=== PATIENT | female | born 1975 | race Caucasian/White ===

== ENCOUNTER → 2019-07-21 18:05 | Outpatient (CLI) | payer OTHER, SELFPAY ==
--- NOTE | 2019-07-21 18:14 | DI.MG.S_ITS ---
BILATERAL DIGITAL SCREENING MAMMOGRAM 3D/2D WITH CAD: 07/21/2019 CLINICAL: Routine screening. Comparison is made to exams dated: 05/15/2018 mammogram, 05/16/2018 mammogram - [facility], and 01/07/2017 mammogram - [place]. The tissue of both breasts is heterogeneously dense. This may lower the sensitivity of mammography. Current study was also evaluated with a Computer Aided Detection (CAD) system. No significant masses, calcifications, or other findings are seen in either breast. There has been no significant interval change. IMPRESSION: NEGATIVE There is no mammographic evidence of malignancy. A 1 year screening mammogram is recommended. This exam was interpreted at Station ID: [id number]. NOTE: For mammograms, a report in lay terms will be sent to the patient. Approximately 15% of breast malignancies will not be visualized mammographically. In the management of a palpable breast mass, a negative mammogram must not discourage biopsy of a clinically suspicious lesion. Electronically Signed By: Radha bryant/cindy:07/22/2019 11:58:26 letter sent: Normal Exam ACR BI-RADS Category 1: Negative 3341F
== END ==
PROVIDERS: Visit Provider Registered Nurse Diabetes Educator
DX: Z12.31 Encounter for screening mammogram for malignant neoplasm of breast (principal)
CPT/HCPCS: 77063; 77067

== ENCOUNTER → 2020-11-04 08:06 | Outpatient (CLI) | payer OTHER, SELFPAY ==
--- NOTE | 2020-11-04 | DI.MG.S_ITS ---
BILATERAL DIGITAL SCREENING MAMMOGRAM 3D/2D WITH CAD: 11/04/2020 CLINICAL: Routine screening. Comparison is made to exams dated: 07/21/2019 mammogram - [facility], 05/16/2018 mammogram - [facility], 01/07/2017 mammogram - [place], and 05/15/2018 mammogram - [facility]. The tissue of both breasts is heterogeneously dense. This may lower the sensitivity of mammography. Current study was also evaluated with a Computer Aided Detection (CAD) system. There is a possible developing asymmetry in the left breast middle depth lateral region seen on the craniocaudal view only. There also is an asymmetry in the left breast middle depth central to the nipple seen on the craniocaudal view only. Additionally, there is possible architectural distortion in the left breast posterior depth superior region seen on the mediolateral oblique view only. No other significant masses, calcifications, or other findings are seen in either breast. IMPRESSION: INCOMPLETE: NEEDS ADDITIONAL IMAGING EVALUATION 1) The possible developing asymmetry in the left breast middle depth lateral region seen on the craniocaudal view only is indeterminate. -Additional views with possible ultrasound are recommended. 2) The asymmetry in the left breast middle depth central to the nipple seen on the craniocaudal view only is indeterminate. -Additional views with possible ultrasound are recommended. 3) The possible architectural distortion in the left breast posterior depth superior region seen on the mediolateral oblique view only is indeterminate. -Additional views with possible ultrasound are recommended. This exam was interpreted at Station ID: [id number]. NOTE: For mammograms, a report in lay terms will be sent to the patient. Approximately 15% of breast malignancies will not be visualized mammographically. In the management of a palpable breast mass, a negative mammogram must not discourage biopsy of a clinically suspicious lesion. Electronically Signed By: Dangelo Reed M.D. slc/:11/07/2020 08:04:11 letter sent: Additional Imaging Needed ACR BI-RADS Category 0: Incomplete 3340F
== END ==
PROVIDERS: Referring Provider Family Medicine; Visit Provider Family Medicine
DX: Z12.31 Encounter for screening mammogram for malignant neoplasm of breast (principal)
CPT/HCPCS: 77063; 77067

== ENCOUNTER → 2020-11-23 08:41 | Outpatient (CLI) | payer OTHER, SELFPAY ==
--- NOTE | 2020-11-23 | DI.MG.S_ITS ---
UNILATERAL LEFT DIGITAL DIAGNOSTIC MAMMOGRAM 3D/2D WITH ADDITIONAL VIEWS: 11/23/2020 CLINICAL: Additional evaluation requested from prior study. Comparison is made to exams dated: 11/04/2020 mammogram, 07/21/2019 mammogram - [facility], and 05/16/2018 mammogram - [facility]. The tissue of left breast is heterogeneously dense. This may lower the sensitivity of mammography. Redemonstration of previously described possible developing 1 cm oval asymmetry in the left breast middle depth lateral region seen on the craniocaudal view only. There also is a 0.7 cm oval asymmetry in the left breast middle depth central to the nipple seen on the craniocaudal view only. This is less prominent and decreased in size. The possible benign architectural distortion in the left breast posterior depth superior region seen on the mediolateral oblique view only is not reproduced and presumably represented superimposed breast tissue. No other significant masses or calcifications are seen in the breast. IMPRESSION: INCOMPLETE: NEEDS ADDITIONAL IMAGING EVALUATION The possible developing 1 cm oval asymmetry in the left breast middle depth lateral region seen on the craniocaudal view only resembles a cyst and is indeterminate. An ultrasound is recommended for further evaluation and is scheduled to immediately follow this examination. The 0.7 cm oval asymmetry in the left breast middle depth central to the nipple seen on the craniocaudal view only is indeterminate. An ultrasound is recommended for further evaluation and is scheduled to immediately follow this examination. The previously described possible architectural distortion in the posterior breast on the mediolateral oblique view disperses with additional views and is consistent with summation artifact. This exam was interpreted at Station ID: [id number]. NOTE: For mammograms, a report in lay terms will be sent to the patient. Approximately 15% of breast malignancies will not be visualized mammographically. In the management of a palpable breast mass, a negative mammogram must not discourage biopsy of a clinically suspicious lesion. Electronically Signed By: Chucho Avila M.D. aty/:11/23/2020 09:37:07 ACR BI-RADS Category 0: Incomplete 3340F
--- NOTE | 2020-11-23 | DI.US.S_ITS ---
ULTRASOUND OF LEFT BREAST: 11/23/2020 CLINICAL: Patient returns today to evaluate a focal asymmetry in the left breast. Comparison is made to exams dated: 11/23/2020 mammogram, 11/04/2020 mammogram, 07/21/2019 mammogram - [facility], 05/16/2018 mammogram, and 05/15/2018 mammogram - [facility]. Color flow and real-time ultrasound of the left breast were performed. Gee scale images of the real-time examination were reviewed. There is a 1.1 cm x 0.6 cm x 0.9 cm oval cyst with septated internal fagan in the left breast central to the nipple anterior depth 1 cm from the nipple. This oval cyst is hypoechoic with internal echoes. This correlates with mammography findings. Color flow imaging demonstrates that there is no vascularity present. There also is a benign 1.3 cm x 0.6 cm x 1 cm oval cyst in the left breast at 3 o'clock posterior depth 7 cm from the nipple. This oval cyst is anechoic with a well-defined boundary and posterior acoustic enhancement. This correlates with mammography findings. Color flow imaging demonstrates that there is no vascularity present. IMPRESSION: PROBABLY BENIGN The 1.1 cm x 0.6 cm x 0.9 cm oval cyst in the left breast central to the nipple anterior depth most likely is a complicated cyst and is probably benign. A follow-up left mammogram and an ultrasound in 6 months is recommended to demonstrate stability. The 1.3 cm x 0.6 cm x 1 cm oval simple cyst in the left breast at 3 o'clock posterior depth is benign. Findings and recommendations were conveyed to the patient during today's evaluation. This exam was interpreted at Station ID: [id number]. Electronically Signed By: Chucho Avila M.D. aty/:11/23/2020 16:04:55 letter sent: Followup Recommended Ultrasound BI-RADS: 3 Probably benign
== END ==
PROVIDERS: PCP Student in an Organized Health Care Education/Training Program; Referring Provider Student in an Organized Health Care Education/Training Program; Visit Provider Student in an Organized Health Care Education/Training Program
DX: R92.8 Other abnormal and inconclusive findings on diagnostic imaging of breast (principal); N60.02 Solitary cyst of left breast
CPT/HCPCS: 76642; 77065; G0279

== ENCOUNTER 2021-02-07 08:10 | Day surgery (SDC) | payer OTHER, SELFPAY ==
[2021-02-07 08:44] LABS: COVID19 -Nasal RAPID Negative (Negative)
[2021-02-07 09:06] VITALS: BP 117/81; PULSE 84; RESP 18; TEMP 36.6; O2SAT 99; BMI 23.3
--- NOTE | 2021-02-07 09:18 | PM.HP.1 ---
History of Present Illness History of Present Illness Date Patient Seen: 02/07/21 Time Patient Seen: 09:18 Chief complaint: DX COLONOSCOPY Narrative: I reviewed my note from January 09, 2021 rectal bleeding Patient History Family & Social History Social History: household members spouse Tobacco & Substance use: Smoking Status Never smoker alcohol intake never alcohol intake frequency holiday/special occasion Substance Use Type does not use Meds Home Medications and Allergies Home Medications Medication Instructions Recorded Confirmed Type No Known Home Medications 02/07/21 02/07/21 History Allergies Allergy/AdvReac Type Severity Reaction Status Date / Time cefaclor [From Ceclor] Allergy Intermediate Hives Verified 02/07/21 09:18 Review of Systems Review of Systems ROS: Yes All systems reviewed with the patient and are negative except as otherwise documented Exam Vital Signs (past 8 hours): - 02/07/21 09:06 Temperature 98 F Pulse Rate 84 Respiratory Rate 18 Blood Pressure 117/81 Pulse Oximetry 99 Oxygen Delivery Method Room Air Const General: cooperative and comfortable Orientation: alert HENMT Head: normocephalic Ears: external ears normal Nose: external nose normal Face and sinus: normal facial exam Mouth: oral mucosae normal Eyes General: appearance normal, both eyes and all related structures Neck Neck: normal visual inspection Chest Chest: normal inspection of the chest Resp Effort & Inspection: normal respiratory effort Auscultation: clear to auscultation bilaterally Cardio Rate: regular rate Rhythm: regular rhythm Heart Sounds: no murmurs GI Inspection: normal to inspection Palpation: soft and No tender Auscultation: normal bowel sounds Skin General: no rashes or lesions noted and No jaundice Neuro General: patient alert and moves all extremities Cognition: normal cognition Speech: speech normal Extrem General: no pedal edema Psych Appearance: grossly normal Objective Labs Labs: Laboratory Results - last 24 hr 02/07/21 07:55 SARS-CoV-2 (PCR) Negative Assessment & Plan Assessment & Plan narrative: Intermittent rectal bleeding. Colonoscopy is planned for today.
--- NOTE | 2021-02-07 09:19 | PM.PREOP ---
Pre-operative Note COVID-19 COVID-19 status: Negative Result date/Date tested (Pos, Neg/Pending): 02/07/21 Interval Note History & Physical reviewed/Exam performed by Physician: Yes Changes to H&P: No ASA Class (for procedural sedation): I
[2021-02-07] MEDS: SODIUM CHLORIDE 0.9% 1,000 ML 125 ML IV (09:22)
[2021-02-07] MEDS: LIDOCAINE JELLY 2% 5 ML 1 APPLIC TOP (10:08)
[2021-02-07] MEDS: MIDAZOLAM 5 MG/5 ML VIAL IV (10:15)
[2021-02-07] MEDS: fentaNYL 250 MCG/5 ML INJ IV (10:15)
--- NOTE | 2021-02-07 10:24 | P.OP.ENDO_ITS ---
Operative Date/Time/Diagnoses Date of procedure: 02/07/21 Time of procedure: 10:24 Pre-op diagnosis: Rectal bleeding Post-op diagnosis: same Procedure & Clinicians Study performed: Colonoscopy Same procedure as scheduled: Yes Indications: Rectal bleeding Surgeon: Luis Miranda Procedure Notes SCOAP/Timeout: Done Procedure in detail: After the risks and benefits were explained, written and verbal informed consent was obtained. The patient was brought into the procedure room and placed into the left lateral decubitus position. Conscious sedation medication was applied as per nursing documentation. Digital rectal ex amination was accomplished. The scope was introduced into the patient and advanced under direct visualization to the cecum as identified by the appendiceal orifice and ileocecal valve. The scope was slowly withdrawn to carefully examine the mucosa for any defects or lesions. Comprehensive imaging was accomplished throughout the rectum including the dentate line. The colon was decompressed, the scope was then removed from the patient who tolerated the procedure well. 4 mg Versed 100 mcg fentanyl bowel prep adequate pediatric colonoscope used Scope withdrawal time: 6 minutes Sedation minutes: 14 Specimen(s): none sent Complications: none Impression: There were some scattered diverticula in the left colon. No proctitis no colitis. No evidence of any polyps or mass lesions. The anorectum appeared visually normal with the exception of a probable fairly well healed fissure in the 10:00 a.m. location. The patient tolerated the rectal exam quite well (we used 2% lidocaine jelly) Endoscopic diagnosis 1. Well-healed anal fissure 2. Otherwise visually normal colonoscopy to cecum Post-procedure Recommendations: Colonscopy in 10 years Plan for aftercare: 1. Continue warm Epsom salt baths as needed. 2. He should there be any lingering ano-rectal pain, a 4 week course of 0.3% nifedipine ointment applied in a pea-sized lump inside the anal canal twice per day may be necessary. Disposition: PACU
[2021-02-07 10:26] VITALS: BP 116/65; PULSE 66; RESP 16; TEMP 36.7; O2SAT 97
[2021-02-07 10:31] VITALS: BP 112/65; PULSE 55; RESP 16; O2SAT 99
[2021-02-07 10:36] VITALS: BP 107/64; PULSE 53; RESP 14; O2SAT 99
[2021-02-07 10:41] VITALS: BP 109/61; PULSE 61; RESP 16; TEMP 36.7; O2SAT 98
[2021-02-07 10:55] VITALS: BP 124/80; PULSE 58; RESP 16; TEMP 36.8
== END 2021-02-07 11:00 | disposition home or self-care (01) ==
PROVIDERS: PCP Student in an Organized Health Care Education/Training Program; Referring Provider Internal Medicine Gastroenterology; Visit Provider Internal Medicine Gastroenterology
PROC: 0DJD8ZZ Inspection of Lower Intestinal Tract, Via Natural or Artificial Opening Endoscopic (ICD-10-PCS; CPT 45378; principal; 2021-02-07 09:30)
DX: K62.5 Hemorrhage of anus and rectum (principal); Z20.822 Contact with and (suspected) exposure to COVID-19
CPT/HCPCS: 45378; 87635; J2250; J3010

== ENCOUNTER → 2021-12-18 07:52 | Outpatient (CLI) | payer OTHER, SELFPAY | PROVIDERS: PCP Student in an Organized Health Care Education/Training Program; Referring Provider Family Medicine; Visit Provider Family Medicine | DX: Z53.20 Procedure and treatment not carried out because of patient's decision for unspecified reasons (principal) ==

== ENCOUNTER → 2022-03-12 12:02 | Outpatient (CLI) | payer OTHER, SELFPAY ==
--- NOTE | 2022-03-12 | DI.US.S_ITS ---
ULTRASOUND OF LEFT BREAST: 03/12/2022 CLINICAL: 12 month follow-up of cluster of cysts. No prior exams were available for comparison. Color flow and real-time ultrasound of the left breast were performed. Gee scale images of the real-time examination were reviewed. There is a 1.3 cm x 0.4 cm x 1 cm oval cyst with smooth internal fagan in the left breast central to the nipple anterior depth 1 cm from the nipple. This oval cyst is hypoechoic with internal echoes and no posterior acoustic shadowing or enhancement. This abnormality is increased in size and correlates with mammography findings. Color flow imaging demonstrates that there is no vascularity present. There also is a 1.7 cm x 0.9 cm x 1.2 cm wider than tall cyst in the left breast at 3 o'clock middle depth 7 cm from the nipple. This cyst is anechoic. This abnormality is not significantly changed and correlates with mammography findings. Color flow imaging demonstrates that there is no vascularity present. IMPRESSION: PROBABLY BENIGN The 1.3 cm x 0.4 cm x 1 cm oval cyst in the left breast central to the nipple anterior depth is consistent with a complicated cyst and is probably benign. A follow-up left ultrasound in 6 months is recommended to demonstrate stability. The 1.7 cm x 0.9 cm x 1.2 cm wider than tall cyst in the left breast at 3 o'clock middle depth is consistent with a simple cyst and is benign. Findings and recommendations were conveyed to the patient during today's evaluation. This exam was interpreted at Station ID: [id number]. Electronically Signed By: Chucho regan/:03/15/2022 06:54:39 letter sent: Followup Recommended Ultrasound BI-RADS: 3 Probably benign
--- NOTE | 2022-03-12 | DI.MG.S_ITS ---
BILATERAL DIGITAL DIAGNOSTIC MAMMOGRAM 3D/2D SHORT-TERM FOLLOW-UP: 03/12/2022 CLINICAL: Short term follow up of the left breast, due for bilateral imaging. Comparison is made to exams dated: 11/23/2020 mammogram, 11/04/2020 mammogram, and 07/21/2019 mammogram - [facility]. Both breasts are heterogeneously dense, which may obscure small masses (category c / 51-75% glandular tissue). There is a 1.6 cm oval asymmetry in the left breast middle depth lateral region seen on the craniocaudal view only. This is more prominent. There also is a 0.8 cm oval asymmetry in the left breast anterior depth central to the nipple seen on the craniocaudal view only. This is not significantly changed. No other significant masses, calcifications, or other findings are seen in either breast. IMPRESSION: INCOMPLETE: NEEDS ADDITIONAL IMAGING EVALUATION The 1.6 cm oval asymmetry in the left breast middle depth lateral region seen on the craniocaudal view only resembles a cyst and is indeterminate. An ultrasound is recommended for further evaluation and is scheduled to immediately follow this examination. The 0.8 cm oval asymmetry in the left breast anterior depth central to the nipple seen on the craniocaudal view only is indeterminate. An ultrasound is recommended for further evaluation and is scheduled to immediately follow this examination. This exam was interpreted at Station ID: [id number]. NOTE: For mammograms, a report in lay terms will be sent to the patient. Approximately 15% of breast malignancies will not be visualized mammographically. In the management of a palpable breast mass, a negative mammogram must not discourage biopsy of a clinically suspicious lesion. Electronically Signed By: Chucho Avila M.D. aty/:03/12/2022 13:04:01 ACR BI-RADS Category 0: Incomplete [id number]
== END ==
PROVIDERS: PCP Family Medicine; Referring Provider Family Medicine; Visit Provider Family Medicine
DX: R92.8 Other abnormal and inconclusive findings on diagnostic imaging of breast (principal); N64.89 Other specified disorders of breast; N60.02 Solitary cyst of left breast
CPT/HCPCS: 76642; 77066; G0279